=== PATIENT | female | born 1955 ===

== ENCOUNTER → 2018-11-11 19:22 | Outpatient (REF) | payer OTHER, SELFPAY ==
[2018-11-11 20:05] LABS: Alanine Aminotransferase 37 IU/L (9-52); Albumin 4.1 g/dL (3.5-5.0); Albumin Globulin Ratio 1.1 (1.0-2.8); Alkaline Phosphatase 154 U/L (38-126); Aspartate Aminotransferase 27 IU/L (14-36); BUN Creatinine Ratio 24.3 (6-22); Bilirubin Total 0.6 mg/dL (0.2-1.3); Blood Urea Nitrogen 17 mg/dL (7-17); Calcium 9.5 mg/dL (8.4-10.2); Carbon Dioxide 23 mmol/L (22-32); Cholesterol 151 mg/dL (140-199); Estimated Glomerular Filt Rate > 60.0 mL/min (>60); Globulin 3.6 g/dL (1.7-4.1); Glucose 161 mg/dL (80-110); HDL Cholesterol 50 mg/dL (40-60); LDL Cholesterol Calculated 86 mg/dL (<100); Total Protein 7.7 g/dL (6.3-8.2); Triglycerides 73 mg/dL (35-150)
[2018-11-11 20:07] LABS: Add Manual Diff / Slide Review NO; Basophils Absolute Auto 100 /uL (0-100); Eosinophils Absolute Auto 200 /uL (0-450); Eosinophils Percent Auto 1.8 % (2-4); Hematocrit 43.2 % (36-46); Hemoglobin 14.2 g/dL (12.0-16.0); Lymphocytes Absolute Auto 1400 /uL (1100-4500); Lymphocytes Percent Auto 15.1 % (25-40); Mean Corpuscular HGB Conc 32.8 % (30-36); Mean Corpuscular Hemoglobin 31.9 PG (26-34); Monocytes Absolute Auto 700 /uL (0-900); Monocytes Percent Auto 7.4 % (3-14); Neutrophils Absolute Auto 6700 /uL (1500-7000); Neutrophils Percent Auto 74.7 % (50-75); Platelet Count 302 X10^3/uL (150-400); Red Blood Cell Count 4.45 X10^6/uL (4.0-5.2); Red Cell Distribution Width 13.7 % (11.6-14.8)
[2018-11-11 20:13] LABS: Chloride 106 mmol/L (98-107); HEMOLYSIS 21 (0-50); Potassium 4.7 mmol/L (3.4-5.1); Sodium 138 mmol/L (137-145)
[2018-11-11 20:22] LABS: Hemoglobin A1C% w Est Avg Glu 7.2 % (4.0-6.0)
[2018-11-11 20:58] LABS: Creatinine Urine Random 76.7 mg/dL
[2018-11-11 21:02] LABS: Microalbumi Creatinin Ratio Ur 10.4 ug/mg CR (<30); Microalbumin Urine Random 0.8 mg/dL (0-1.6)
== END ==
LOC: LAB 19:22
PROVIDERS: Visit Provider Physician Assistant Medical
DX: E11.69 Type 2 diabetes mellitus with other specified complication (principal); E78.5 Hyperlipidemia, unspecified; I10 Essential (primary) hypertension
CPT/HCPCS: 36415; 80053; 80061; 82043; 82570; 83036; 85025